=== PATIENT | female | born 1950 | race Caucasian/White ===

== ENCOUNTER 2024-10-12 23:55 | Emergency (ER) | payer MEDICARE, SELFPAY ==
--- NOTE | ~2024-10-12 | XR_ITS ---
CLINICAL HISTORY: left knee pain post fall 2 view left knee Comparison: None Findings: Large effusion present. Moderate tricompartment osteoarthritis of the left knee. No displaced fracture by two-view radiograph. Small calcification of the proximal portion of the expected lateral collateral ligament. Linear sclerosis appears non aggressive including distal femur diaphysis. Vascular calcifications noted, including dorsal and proximal phleboliths. Varicose veins suggested medially. IMPRESSION: 1. Large effusion of the left knee as can be seen with nondisplaced fracture and with internal derangement of the knee. 2. No displaced fracture or dislocation at this time. 3. Moderate osteoarthritis. This document has been electronically signed by: Jose Cade MD on 10/13/2024 01:11:09
[2024-10-12 23:59] VITALS: BP 147/82; PULSE 98; RESP 20; TEMP 36.1; O2SAT 97; BMI 30.3
--- NOTE | 2024-10-13 00:48 | ED.FALL ---
HPI - Fall General Chief Complaint: Fall Stated Complaint: fALL AT 5PM 10/12/24 Time Seen by Provider: 10/13/24 00:15 Source: patient Mode of arrival: ambulatory Limitations: no limitations History of Present Illness ED Provider: DR. Zamudio HPI Narrative: 73-year-old female who sustained a mechanical fall earlier today, patient fell 3 steps of cement stairs landing on her left knee, no head injury, no neck injury, declined using any anticoagulation patient otherwise has no other complaints. No anticoagulation therapy, no alcohol use, no history of drug use. Related Data Allergies Allergy/AdvReac Type Severity Reaction Status Date / Time codeine [CODEINE] Allergy Unknown HEADACHES Verified 10/13/24 00:00 Review of Systems Review of Systems: All other systems are reviewed and are negative Constitutional: Reports as per HPI and Reports no additional constitutional complaints Eyes: Reports as per HPI and Reports no additional eye complaints Reports system reviewed and no additional complaints, except as documented Cardiovascular: Reports as per HPI and Reports no additional cardiovascular complaints Respiratory: Reports as per HPI and Reports no additional respiratory complaints Gastrointestinal: Reports as per HPI and Reports no additional gastrointestinal complaints Genitourinary: Reports no additional female genitourinary complaints Musculoskeletal: Reports no additional musculoskeletal complaints Skin/Breast: Reports system reviewed and no additional complaints, except as docu Psychiatric: Reports no additional psychiatric complaints Endocrine: Reports no additional endocrine complaints Hematologic/Lymphatic: Reports no additional hematologic/lymphatic complaints Allergic/Immunologic: Reports no additional allergic/immunologic complaints Reports system reviewed and no additional complaints, except as documented and Reports Abnormal speech present PMFSH Social History Social History Advance Directives: No Advance Directives Information Provided: Yes Do you have a plan to hurt others: No Plan Physical Exam Vital Signs: Vital Signs: Last Vital Signs Temp 97 F 10/12/24 23:59 Pulse 98 10/12/24 23:59 Resp 20 10/12/24 23:59 BP 147/82 H 10/12/24 23:59 Pulse Ox 97 10/12/24 23:59 O2 Del Method Room Air 10/12/24 23:59 BMI result Body Mass Index 30.3 Vital signs have been reviewed and appear to be correct. Blood pressure elevated. Heart rate normal. Respiratory rate normal. Temperature normal. Oxygen saturation normal. Appearance: Alert. Oriented X3. No acute distress. Head: Normal external exam. Normocephalic. Atraumatic. No Magdaleno signs noted. No raccoon eyes noted Eyes: PERRLA. EOMI. Conjunctiva and sclera normal. Eyelids normal. ENT: TM's Normal. Pharynx normal. Uvula midline. Moist mucous membranes. No trismus noted. No drooling noted. No muffled voice noted. Neck: Normal inspection. Neck supple. FROM. No adenopathy. Thyroid Normal. No meningeal signs. No neck mass noted. CVS: Normal heart rate and rhythm. Heart sound normal. No murmurs noted. Pulses normal throughout. Respiratory: No respiratory distress. Painless inspiration. Breath sounds normal. No wheezes/rales/rhonchi noted. Chest nontender. No accessory muscle usage noted or decreased air movement noted. Abdomen: Soft and nontender. Bowel sounds normal in all 4 quadrants. No distention noted. No organomegaly noted. No visible injury noted. Back: No CVA tenderness. Full range of motion noted. Skin: Skin warm and dry. Normal skin color. Normal skin turgor. No rashes/lesions/lacerations noted. Extremities: No lower extremity edema. Extremities exhibit normal range of motion. Extremities nontender. Neuro: Oriented X 3. Cranial nerve exam: II-XII are grossly intact No motor deficit. No sensory deficit. Reflexes normal. Course Reevaluation(s) Reevaluation #1: 73-year-old female s/p mechanical fall, left knee contusion, x-ray is equivocal for knee fracture, will knee immobilizer, no bear weight with crutches, and follow-up with ortho, patient feels better after received oxycodone patient declined using strong pain medication will use Tylenol at home. Time: 01:30 Medications Administered Discontinued Medications Generic Name Dose Route Start Last Admin Trade Name Freq PRN Reason Stop Dose Admin Oxycodone HCl 2.5 mg 10/13/24 00:25 10/13/24 00:49 Oxycodone Hcl Immed Release 5 Mg Tablet PO 10/13/24 00:26 2.5 mg ONCE ONE Administration Medical Decision Making Differential Diagnosis Differential Diagnoses: The differential diagnosis associated with the presentation includes (Closed head injury, cervical spine injury, left knee fracture, left knee dislocation, left knee contusion, chest injury, abdominal injury, extremities injury.) Admission/Observation Consideration of admission/observation: Escalation of care including admission/observation considered Independent Interpretation I performed an independent interpretation of an: Plain X-Ray (Left knee x-ray: 1. Large effusion of the left knee as can be seen with nondisplaced fracture and with internal derangement of the knee. 2. No displaced fracture or dislocation at this time. 3. Moderate osteoarthritis.) Radiology Impression Discussion of test interpretation with radiology: I have reviewed the radiologist's reading. Discharge Plan Discharge Clinical Impression: Contusion of knee, left Patient Disposition: Still a Patient Instructions: Contusion in Adults (ED) Additional Instructions: Apply ice to left knee, wrist, no strenuous activity, follow-up with your PCP. Referrals: Manjeet Foley MD [Primary Care Provider] - Loi Joaquin MD [Physician] - Print Language: Vincentian
[2024-10-13] MEDS: oxyCODONE HCl Immed Release 5 MG TABLET 2.5 MG PO (00:49)
--- NOTE | 2024-10-13 00:52 | PC.NURSE ---
Pt brought to [facility] for treatment, assumed care of pt at this time. A&Ox3 skin pwd respirations even unlabored. Endorsing left knee pain after being tripped by dogs when letting them out around 1700 tonight. +csm, no obvious deformity noted. Xray pending, pt medicated per SEP.
--- NOTE | 2024-10-13 02:24 | PC.NURSE ---
Pt reports positive pain relief from previously administered pain med. Knee immobilizer applied, ambulatory to bathroom with crutches with steady gait. Awaiting MD reeval for nc home.
[2024-10-13 03:04] VITALS: BP 147/82; PULSE 98; RESP 20; TEMP 36.1; O2SAT 97
== END 2024-10-13 03:05 | disposition home or self-care (01) ==
PROVIDERS: Emergency Provider Emergency Medicine; PCP Internal Medicine
DX: S80.02XA Contusion of left knee, initial encounter (principal); W10.8XXA Fall (on) (from) other stairs and steps, initial encounter; M25.562 Pain in left knee; Y93.9 Activity, unspecified; Y92.9 Unspecified place or not applicable; Y99.9 Unspecified external cause status
CPT/HCPCS: 73560; 99283; 99284

== ENCOUNTER → 2024-10-13 00:10 | Outpatient (BNV) | payer MEDICARE, SELFPAY | PROVIDERS: Emergency Provider Emergency Medicine; PCP Internal Medicine; Visit Provider Radiology Neuroradiology | DX: M25.562 Pain in left knee (principal); M25.462 Effusion, left knee; W19.XXXA Unspecified fall, initial encounter; M17.12 Unilateral primary osteoarthritis, left knee | CPT/HCPCS: 73560 ==

== ENCOUNTER 2024-11-07 13:39 | Outpatient (REF) | payer MEDICARE, SELFPAY | END 2024-11-07 13:40 | disposition home or self-care (01) | LOC: HO.HOSX 13:39 | PROVIDERS: Visit Provider Physician Assistant | DX: Z13.89 Encounter for screening for other disorder (principal) ==

== ENCOUNTER 2024-11-25 08:56 | Outpatient (REF) | payer MEDICARE, SELFPAY | END 2024-11-25 08:57 | disposition home or self-care (01) | LOC: HO.HOSX 08:56 | PROVIDERS: Visit Provider Physician Assistant | DX: Z13.89 Encounter for screening for other disorder (principal) ==